=== PATIENT | female | born 1960 | race Caucasian/White ===

== ENCOUNTER 2017-09-17 14:05 | Day surgery (SDC) | payer OTHER, SELFPAY ==
[2017-09-17] VITALS (7 sets, daily range): BP systolic 109–146; BP diastolic 60–73; PULSE 55–61; RESP 16–18; TEMP 36.7–37.2; O2SAT 93–97; BMI 49.8
--- NOTE | 2017-09-17 14:38 | RAD_ITS ---
PROCEDURE: Caudal block. DATE OF EXAMINATION: September 17, 2017. INDICATION: Female, 57 years old. Chronic low back pain. FLUOROSCOPY TIME (if supplied): (0:12) minutes/seconds Intraoperative imaging provided for caudal block. The tip of the spinal needle is seen along the dorsal midportion of the sacrum. RAD/Fluor Guidance for Spine Inj IMPRESSION: Intraoperative imaging provided for caudal block. Electronically Signed: Tunde Barksdale MD at 15:48 EDT Tel [phone], Service support ,
[2017-09-17] MEDS: MethylPREDNISolone Acetate 80 MG/ML Vial (14:46)
[2017-09-17] MEDS: Bupivacaine 0.25% 30 ML Vial (14:46)
--- NOTE | 2017-09-17 14:48 | OP.PCM_ITS ---
Problem List (1) Degeneration of lumbar or lumbosacral intervertebral disc Status: Chronic (2) Radiculopathy of lumbosacral region Status: Chronic (3) Spinal stenosis of lumbosacral region Status: Chronic Report of Operation Date of Procedure: 09/17/17 Pre-Operative Diagnosis: Lumbosacral radiculopathy, lumbosacral degenerative disc disease, lumbosacral spinal stenosis Post-Operative Diagnosis: Lumbosacral radiculopathy, lumbosacral degenerative disc disease, lumbosacral spinal stenosis Surgery/Procedure Performed:: Diagnostic/therapeutic caudal epidural steroid injection Description of Surgical Findings:: PROCEDURE: Diagnostic/therapeutic caudal epidural steroid injection PREOPERATIVE DIAGNOSIS: Lumbosacral radiculopathy, lumbosacral degenerative disc disease, lumbosacral spinal stenosis POSTOPERATIVE DIAGNOSIS: Lumbosacral radiculopathy, lumbosacral degenerative disc disease, lumbosacral spinal stenosis ANESTHESIA: MAC COMPLICATIONS: None BLOOD LOSS: Minimal PROCEDURE IN DETAIL: History and physical today was reviewed. Risks and benefits of the procedure were explained. The patient understood, agreed to our procedure, and informed consent was obtained. IV inserted per routine protocol. The patient was taken to the operating room, placed in a prone position with a pillow positioned underneath the abdomen. The lower back and tailbone area was prepped and draped in a sterile fashion using iodine ?3 under direct visualization fluoroscopy on the lateral view the caudal space was identified the skin and subcutaneous tissue and size approximately 3 cc of 1% lidocaine using a 25-gauge regular needle under direct visualization with fluoroscopy on the lateral view using a 22-gauge 3-1/2 inch spinal needle the needle was advanced via the skin through the sacral hiatus the peroneal passed through the sacrococcygeal ligament advanced approximately S4 area after negative aspiration of blood or CSF a total of 3 cc of contrast were injected to confirm correct placement of the needle as well as cephalad spread spread was followed to approximately L5 area after confirmation AP as well as lateral view and repeated negative aspiration a total of 15 cc of preservative-free 0.125% Marcaine with 80 mg of the portal was injected easily. The needles were then removed intact. The patient experienced no signs or symptoms intrathecal, intravascular injection. The patient experienced no paraesthesia. The procedure was completed without any apparent difficult, any complication. The patient appeared to tolerate well. ASSESSMENT AND PLAN: This is a 57-year-old female with lumbosacral radiculopathy lumbosacral degenerative disc disease lumbosacral spinal stenosis status post diagnostic/ therapeutic caudal epidural steroid injection. The patient will continue his current medications. The patient will follow in approximately 2 weeks for possible repeat of the procedure if indicated.
== END 2017-09-17 15:46 | disposition home or self-care (01) ==
LOC: SDC 14:06 → AC 14:08
PROVIDERS: Family Provider Family Medicine; PCP Family Medicine; Visit Provider Anesthesiology Pain Medicine
PROC: 3E0S3BZ Introduction of Anesthetic Agent into Epidural Space, Percutaneous Approach (ICD-10-PCS; CPT 62282; principal; 2017-09-17 15:05)
DX: M51.17 Intervertebral disc disorders with radiculopathy, lumbosacral region (principal); M48.07 Spinal stenosis, lumbosacral region; I25.10 Atherosclerotic heart disease of native coronary artery without angina pectoris; I10 Essential (primary) hypertension; I48.91 Unspecified atrial fibrillation; F17.200 Nicotine dependence, unspecified, uncomplicated; G47.30 Sleep apnea, unspecified; Z79.02 Long term (current) use of antithrombotics/antiplatelets; Z79.891 Long term (current) use of opiate analgesic; Z79.899 Other long term (current) drug therapy
CPT/HCPCS: 01992; 62323; 64520; 64483; 77003; J7120; J3490

== ENCOUNTER 2017-12-03 09:37 | Day surgery (SDC) | payer OTHER, SELFPAY ==
[2017-12-03 09:57] VITALS: BP 122/65; PULSE 53; RESP 16; TEMP 36.3; O2SAT 96; BMI 46.6
[2017-12-03] MEDS: Bupivacaine 0.5% PF 10 ML VIAL (10:45)
[2017-12-03] MEDS: MethylPREDNISolone Acetate 80 MG/ML Vial (10:45)
[2017-12-03 11:01] VITALS: BP 122/65; BP 124/75; PULSE 57; RESP 16; TEMP 36.4; O2SAT 95
[2017-12-03 11:05] VITALS: BP 122/65; BP 135/63; PULSE 51; RESP 14; O2SAT 95
--- NOTE | 2017-12-03 11:05 | RAD_ITS ---
STUDY: LEFT SACROILIAC JOINT INJECTION. REASON FOR EXAM: Female, 57 years old. Low back pain. FLUOROSCOPY TIME (if supplied): (0:12) minutes/seconds. Single coned-down intraoperative view was obtained. TECHNIQUE: Under fluoroscopic guidance, the pain management physician performed a left sacroiliac joint injection. COMPARISON: None. FINDINGS: Imaging provided for left iliac joint injection. RAD/S-I Jts 3 or More Views IMPRESSION: Imaging provided for left sacroiliac joint injection. Electronically Signed: Tunde Barksdale MD at 10:23 EDT Tel [phone], Service support ,
[2017-12-03 11:08] VITALS: BP 119/68; BP 122/65; PULSE 48; RESP 16; O2SAT 95
[2017-12-03 11:13] VITALS: BP 122/65; BP 132/65; PULSE 47; RESP 16; TEMP 36.8; O2SAT 95
[2017-12-03 11:40] VITALS: BP 122/65
--- NOTE | 2017-12-03 15:43 | PCM.OPRPT ---
Problem List (1) Sacrococcygeal disorders, not elsewhere classified Status: Chronic (2) Bilateral sacroiliitis Status: Chronic Report of Operation Date of Procedure: 12/03/17 Pre-Operative Diagnosis: Sacroiliitis, SI joint dysfunction Post-Operative Diagnosis: Sacroiliitis, sacroiliac joint dysfunction Surgery/Procedure Performed:: Left-sided sacroiliac joint steroid injection under fluoroscopic guidance Description of Surgical Findings:: PROCEDURE: Left sacroiliac joint steroid injection under fluoroscopic guidance PREOPERATIVE DIAGNOSIS: Sacroiliitis, sacroiliac joint dysfunction POSTOPERATIVE DIAGNOSIS: Sacroiliitis, sacroiliac joint dysfunction ANESTHESIA: MAC COMPLICATIONS: None BLOOD LOSS: Minimal PROCEDURE IN DETAIL: History and physical today was reviewed. Risks and benefits of the procedure were explained. The patient understood, agreed to our procedure, and informed consent was obtained. IV inserted per routine protocol. The patient was taken to the operating room, placed in a prone position with a pillow positioned underneath the abdomen. The lower back and buttock area was prepped and draped in a sterile fashion using iodine ?3 no direct visualization of fluoroscopy at approximately 15? angle of the bilateral sacroiliac joints were visualized skin and subcutaneous tissue were anesthetized approximately 5 cc of 1% lidocaine using a 25-gauge regular needle under direct visualization with fluoroscopy at approximately 15? angle starting on the left SI a 22-gauge 3-1/2 inch spinal needle the needle was advanced via the skin the tip of the knee was maneuvering directed towards the inferior one third of the posterior SI joint once the tip of the needle was at the vicinity of the joint after negative aspiration for blood or CSF a total of 1 cc of contrast were injected to confirm correct placement of the needle as well as cephalocaudad spread the confirmation was obtained on AP as well as oblique view after repeated negative aspiration and confirmation a total of 4 cc of preservative-free 0.25% Marcaine with 40 mg of Depo-Medrol were injected in and around the SI joint the needles were then removed intact. The patient experienced no signs or symptoms intrathecal, intravascular injection. The patient experienced no paraesthesia. The procedure was completed without any apparent difficult, any complication. The patient appeared to tolerate well. ASSESSMENT AND PLAN: This is a 57-year-old female with sacroiliitis, sacroiliac joint dysfunction status post left sacroiliac joint steroid injection under fluoroscopic guidance. The patient will continue her current medications. The patient will follow in approximately 2 weeks for possible repeat of the procedure if indicated.
== END 2017-12-03 11:51 | disposition home or self-care (01) ==
LOC: SDC 09:37 → AC 09:39
PROVIDERS: Family Provider Family Medicine; PCP Family Medicine; Visit Provider Anesthesiology Pain Medicine
PROC: 3E0U3BZ Introduction of Anesthetic Agent into Joints, Percutaneous Approach (ICD-10-PCS; CPT 64451; principal; 2017-12-03 11:00)
DX: M46.1 Sacroiliitis, not elsewhere classified (principal); Z79.899 Other long term (current) drug therapy; Z79.01 Long term (current) use of anticoagulants; I10 Essential (primary) hypertension; F17.200 Nicotine dependence, unspecified, uncomplicated; I48.91 Unspecified atrial fibrillation; G47.30 Sleep apnea, unspecified
CPT/HCPCS: 01992; 27096; 64483; 72202; J7120; J3490

== ENCOUNTER 2018-05-03 14:00 | Outpatient (RCR) | payer OTHER, SELFPAY ==
--- NOTE | 2018-04-26 14:50 | HP.PTEVAL ---
Patient's Visit Information JESU GANN is a 57 year old F referred to Physical Therapy by CHARI Huffman with a diagnosis of LUMBAR DDD WITH RADICULOPATHY, NECK DDD, LALI KNEE PAIN.. Date of Evaluation: 04/26/18 Physical Therapist: Reyna Reddy PT, Cert MDT - Visit Plan Frequency: 2-3x /Week Duration: 4-6 Weeks Plan: PATIENT TO REPORT FALL TO PHYSICIAN. IF PHYSICIAN CONCURS - AQUATIC THERAPY FOR PAIN RELEIF, POSTURE CORRECTION/STRENGTHENING, INSTRUCTION IN APPROPRIATE BODY MECHANICS AND ACTIVITY MODIFICATIONS. DLS STARTING WITH A NEUTRAL SPINE PROGRESSING ROM TOLERATED. LALI LE ROM, STRETCHING AND STRENGTHENING. HEP INSTRUCTION. MONITOR RIGHT KNEE PAIN AND SWELLING CLOSELY. - Subjective Findings: DX: LUMBOSACRAL SPONDYLOSIS, DDD AND RADICULOPATHY, CERVCICAL DDD, LALI KNEE PAIN. Work/Leisure: SELF-EMPLOYEED WITH [employer] AND [employer]. WORKING 40 PLUS HOURS A WEEK. SITTING, BENDING, STANDING, LIFTING, TWISTING AND STAIRS. NOT OFF WORK. Disability: NO. Present symptoms: LOW BACK PAIN AND LALI LE SX'S. ESPECIALLY RIGHT LATERAL LEG. INTERMITTENT LALI LE NUMBNESS AND TINGLING L > R. ESPECIALLY LEFT TOES. LALI HIP, KNEE AND ANKLE PAIN. PATIENT REPORTS HER NECK HAS BEEN GREAT AND IS NOT REQUESTING ASSESSMENT OR TREATMENT OF NECK TODAY - IT HAS BEEN PAINFREE. Present since: ABOUT 10 PLUS YEARS - RECENT FLARE UP AFTER RAMESH FOR NO APPARENT REASON OTHER THAN COLD WEATHER. Pain Scale: WORST 8/10, LEAST 0/10. Currently: LOW BACK 1/10, RIGHT KNEE 6/10. RIGHT KNEE PAIN IS CONSTANT. Commenced as a result of: NO APPARENT REASON. Symptoms at onset: LOW BACK. Worse: STAIRS, PROLONGED STANDING, BENDING, TWISTING, PUSHING, PULLING, PROLONGED SITTING, PROLONGED WALKING, AND PROLONGED LYING. TRYING TO CARRY THINGS. Better: PAIN MEDICATION, ICE, HEAT, HOT TUB OF WATER, BIOFREEZE. Disturbed sleep: YES. Previous history/Previous treatment: CHIROPRACTOR, BACK AND KNEE INJECTIONS, NO BACK OR KNEE SURGERY. PHYSICAL THERAPY ON BACK AND KNEES - MOST RECENT VISIT ABOUT 2 MONTHS AGO. CHIROPRACTOR CURRENTLY 2 TIMES A MONTH FOR NECK AND BACK. TOO SOON FOR MORE KNEE INJECTIONS. STATES INJECTIONS HELPED LEFT KNEE BUT NOT RIGHT KNEE. NO BACK SURGERY CONSULTS. NO KNEE SURGERY CONSULTS. Coughing/sneezing/straining: NEGATIVE. Gait: PATIENT REPORTS SHE IS OK WALKING ON FLAT GROUND LONG SHE DOENS'T GO TOO FAR. EVEN THE SLIGHTEST INCLINE MAKES BOTH LEGS HURT AND FEEL WEAK. WEARS ME OUT. ALSO GETS SHARP PAINS IN RIGHT KNEE ON INCLINE. NO AD'S. Difficulty initiating urinatin: NO. Accidents: FALL LAST SUNDAY - SLIPPED ON STEPS AND LANDED LEFT SIDE IN GARAGE AND RIGHT LEG GOT TWISTED AND GOT STUCK BETWEEN DRESSERS AND HANDRAIL SPINDLE. HELPED UP BY DAUGHTER. HAVING A LOT OF SWELLING IN KNEE BEFORE THE FALL AND MORE SWELLING ON OUTSIDE OF KNEE NOW. SOMETIMES KNEE PAIN RADIATES UP AND SOMETIMES RADIATES DOWN. Unexplained weight loss: NO. Imaging: LAST KNEE X-RAY WAS LAST FALL 2017 AND DOCTOR NOT AWARE OF RECENT MAJOR FALL. THIS PT RECOMMENDS PATIENT CALL TODAY TO REPORT FALL TO PHYSICIAN. PATIENT AGREEABLE. PMH: A-FIB, HTN, NO DIABETES, NO CANCER, NO STROKE. SMOKER. Recent major surgery: NO. PLOF (Prior Level of Function): [place]ITED [place] 2018 - Objective Sitting/Standing Posture: POOR. Lordosis: NORMAL TO INCREASED. Lateral shift: NO. Relevant shift: N/A. Active Correction of posture: BETTER. Other Observations: INDEP GAIT INTO PT WITHOUT ANY ASSISTIVE DEVICES OR GROSS DEVIATIONS NOTED. Motor deficit: RIGHT HIP 4-/5, KNEE EXT 3+/5, KNEE FLEX 4/5, ANKLE 5/5, EHL 5/5. LEFT HIP 4/5, KNEE 5/5, ANKLE 5/5, EHL 5/5. Sensory deficit: DECREASED LIGHT TOUCH LEFT LAT LEG. FETT NT. ROM deficit: FULL RIGHT KNEE EXT TO 113 DEG FLEX, FULL LEFT KNEE EXT TO 120 DEG FLEX. INCREASED RIGHT KNEE PAIN WITH RIGHT KNEE FLEX AND EXT ROM TESTING. Reflexes: NT. Dural Signs: NEGATIVE LLE. POSITIVE RIGHT LE. Lumbar mvmt loss: flex - MIN. ext - MOD. R SG - MOD. L SG - MOD. Core strength: POOR. Palpation: NO ACUTE LUMBOSACRAL, PELVIC OR HIP TENDERNESS. MILD TENDERNESS ALONG THE LATERAL BOARDER OF THE RIGHT KNEE. MODERATE RIGHT KNEE EDEMA. NO ACUTE KNEE TENDERNESS AND PATIENT WITH ONLY MILD C/O INCRASED KNEE PAIN WITH MMT'ING. - Goals Goal 1:: DECREASE C/O BACK AND LALI LE SX'S Goal Time Frame: 4-6 Weeks Goal 2:: IMPROVE LIFTING, WALKING, SITTING, STANDING, SLEEP, SOCIAL LIFE, TRAVEL AND HOMEMAKING FUNCTION. Goal Time Frame: 4-6 Weeks Goal 3:: INSTRUCT IN PROPHYLAXIS Goal Time Frame: 4-6 Weeks - Rehabilitation Potential Rehabilitation Potential: Fair - Anticipated Interventions Patient/Client Instruction: Educate patient on: Condition, Plan of Care, Risk Factors, Benefits of Fitness Program For the Purpose of:: To improve self management Therapeutic Exercise to Include: Strength training, Body mechanics, Postural training, Flexibilty training, Gait and locomotor training, In an aquatic setting, Active ROM, Dynamic Lumbar Stabilization For the Purpose of:: To decrease pain, To increase ROM, To improve muscle performance and motor function, To increase tolerance to activity/condition/position, To improve ability of physical actions for home/community/work/leisure, To improve gait and locomotor functions Thank you for the opportunity to evaluate your patient. For Medicare and Medicare HMO plans, please review the plan of care and approve it. It will need to be FAXED BACK to us at [phone] for Medicare purposes. For Medicare only, by signing this I certify the plan of care. Please let me know if there are questions or concerns regarding this plan of care. Physician Signature: Date:
--- NOTE | 2018-06-11 13:29 | HP.PTDCNRP_ITS ---
HP - Discharge Summary (1) - Patient Information JESU GANN was seen in my office for initial evaluation on 04/26/18. The following Plan of Care was established for this patient: Initial Frequency: 2-3x /Week Initial Duration: 4-6 Weeks - Anticipated Interventions Patient/Client Instruction: Educate patient on: Condition, Plan of Care, Risk Factors, Benefits of Fitness Program For the Purpose of:: To improve self management Therapeutic Exercise to Include: Strength training, Body mechanics, Postural training, Flexibilty training, Gait and locomotor training, In an aquatic setti ng, Active ROM, Dynamic Lumbar Stabilization For the Purpose of:: To decrease pain, To increase ROM, To improve muscle performance and motor function, To increase tolerance to activity/condition/position, To improve ability of physical actions for home/community/work/leisure, To improve gait and locomotor functions This patient was last seen in our office 05/03/18. Pertinent comments regarding their Physical therapy will appear below: This patient has not returned to Physical Therapy. It is my understanding that she has been ill and unable to attend her scheduled pt appointments. It is appropriate for her to return to MD for further follow-up as needed. At this point I will be discontinuing this patient from physical therapy. I would be happy to see this patient again in the future if found appropriate by the physician. Thank you! Reyna Reddy, PT, Cert MDT
== END 2018-05-03 19:00 | disposition home or self-care (01) ==
LOC: PT 14:00
PROVIDERS: Family Provider Family Medicine; PCP Family Medicine; Visit Provider Nurse Practitioner Family
DX: M47.817 Spondylosis without myelopathy or radiculopathy, lumbosacral region (principal); M50.30 Other cervical disc degeneration, unspecified cervical region; M51.37 Other intervertebral disc degeneration, lumbosacral region; M25.562 Pain in left knee; M25.561 Pain in right knee; M54.17 Radiculopathy, lumbosacral region
CPT/HCPCS: 97113; 97162

== ENCOUNTER → 2020-04-14 13:20 | Outpatient (CLI) | payer OTHER, SELFPAY ==
--- NOTE | 2020-04-14 13:23 | RAD_ITS ---
STUDY: X-RAY - LUMBAR SPINE REASON FOR EXAM: Female, 59 years old. LOW BACK PAIN, NO INJURY TECHNIQUE: 5 view(s) of the lumbar spine were obtained. COMPARISON: None FINDINGS: Normal lumbar lordosis. There is no substantial scoliosis. There is a normal alignment of the vertebrae. Mild spondylosis. Disc space narrowing at the L4-L5 and L5-S1 levels. The soft tissue structures are unremarkable. RAD/L/S Spine Min 4 Views IMPRESSION: Degenerative changes of the spine, as detailed above. Electronically Signed: Tunde Barksdale MD at 15:19 EST , Service support ,
== END ==
PROVIDERS: PCP Family Medicine; Referring Provider Nurse Practitioner Family; Visit Provider Nurse Practitioner Family
DX: M47.27 Other spondylosis with radiculopathy, lumbosacral region (principal); M51.17 Intervertebral disc disorders with radiculopathy, lumbosacral region
CPT/HCPCS: 72110

== ENCOUNTER → 2020-06-03 13:45 | Outpatient (CLI) | payer OTHER, SELFPAY ==
--- NOTE | 2020-06-03 13:48 | RAD_ITS ---
STUDY: X-RAY - RIGHT KNEE REASON FOR EXAM: Right knee pain. TECHNIQUE: 4 view(s) of the knee. COMPARISON: None. FINDINGS: Normal visualized distal femur. Normal visualized proximal tibia and fibula. Normal proximal tibiofibular articulation. There is mild joint space narrowing of the medial femorotibial compartment. Normal lateral femorotibial compartment. There is a very small marginal osteophyte of the patella without joint space narrowing of the patellofemoral articulation. There is a small joint effusion. RAD/Knee 4 or More Views IMPRESSION: Mild arthrosis of the medial femorotibial compartment. Small joint effusion. Electronically Signed: Kai Valenzuela MD at 14:18 EDT Tel , Service support ,
--- NOTE | 2020-06-03 13:48 | RAD_ITS ---
STUDY: X-RAY - LEFT KNEE REASON FOR EXAM: Left knee pain. TECHNIQUE: 4 view(s) of the knee. COMPARISON: None. FINDINGS: Normal visualized distal femur. Normal visualized proximal tibia and fibula. Normal proximal tibiofibular articulation. There is mild joint space narrowing of the medial femorotibial compartment. Normal lateral femorotibial compartment. There are marginal osteophytes and moderate joint space narrowing of the patellofemoral articulation. There is a joint effusion. RAD/Knee 4 or More Views IMPRESSION: Arthrosis of the medial femorotibial and patellofemoral compartments. Joint effusion. Electronically Signed: Kai Valenzuela MD at 14:17 EDT Tel , Service support ,
== END ==
PROVIDERS: PCP Family Medicine; Referring Provider Nurse Practitioner Family; Visit Provider Nurse Practitioner Family
DX: M25.562 Pain in left knee (principal); M25.561 Pain in right knee
CPT/HCPCS: 73564